=== PATIENT | female | born 1965 | race Caucasian/White ===

== ENCOUNTER 2016-11-18 10:41 | Emergency (ER) | payer BC ==
[~2016-11-18] VITALS: Ht 162.6 cm; Wt 52.0 kg
[~2016-11-18 10:41] MED LIST: AMIT10TA PO; CA C1TAB62 PO; CHOL4PAC2 PO; CIME200T4 PO; CITA10TA8 PO; CITA40TA5 PO; DICY20TA3 PO; DIPH1TAB6 PO; DRON5CAP15 PO; ESCI10TA10 PO; FENO134C PO; GLYC1TAB PO; HYDR-3307 PO; LACT1CAP35 PO; OMEP20TA62 PO; ONDA8TAB16 SL; OXYC5TAB3 PO
[2016-11-18 10:53] VITALS: BP 102/72
[2016-11-18] MEDS ORDERED: DIAZEPAM 5 MG TABLET ONE (11:56)
[2016-11-18] MEDS ORDERED: KETOROLAC 30 MG/1 ML ONE (11:56)
[2016-11-18] MEDS ORDERED: DIAZEPAM 5 MG TABLET PO ONE (12:00)
[2016-11-18] MEDS ORDERED: KETOROLAC 30 MG/1 ML IM ONE (12:00)
== END 2016-11-18 13:17 | disposition home or self-care (01) ==
LOC: ED 13:11
DX: S22.080A Wedge compression fracture of T11-T12 vertebra, initial encounter for closed fracture (principal); F17.200 Nicotine dependence, unspecified, uncomplicated; G89.29 Other chronic pain; F41.1 Generalized anxiety disorder; Z90.49 Acquired absence of other specified parts of digestive tract; W01.0XXA Fall on same level from slipping, tripping and stumbling without subsequent striking against object, initial encounter; Y93.89 Activity, other specified; Y99.8 Other external cause status; Y92.89 Other specified places as the place of occurrence of the external cause
CPT/HCPCS: 72110; 96372; 99284; J1885

== ENCOUNTER 2016-11-21 11:38 | Emergency (ER) | payer BC ==
[~2016-11-21] VITALS: Ht 162.6 cm; Wt 67.0 kg
[2016-11-21] MEDS ORDERED: METOCLOPRAMIDE 5 MG/ML, 2ML ONE (12:26)
[2016-11-21] MEDS ORDERED: FAMOTIDINE 20 MG/2 ML ONE (12:26)
[2016-11-21] MEDS ORDERED: DIPHENHYDRAMINE 50 MG/ML, 1ML ONE (12:26)
[2016-11-21] MEDS ORDERED: MORPHINE SULFATE 4 MG/ML, 1ML ONE (12:26)
[2016-11-21] MEDS ORDERED: SODIUM CHLORIDE 0.9% 1,000ML IVBOLUS ONE (12:30)
[2016-11-21] MEDS ORDERED: DIPHENHYDRAMINE 50 MG/ML, 1ML IVPush ONE (12:30)
[2016-11-21] MEDS ORDERED: FAMOTIDINE 20 MG/2 ML IVP ONE (12:30)
[2016-11-21] MEDS ORDERED: MORPHINE SULFATE 4 MG/ML, 1ML IVPush PRN (12:30)
[2016-11-21] MEDS ORDERED: METOCLOPRAMIDE 5 MG/ML, 2ML IVPush ONE (12:30)
[2016-11-21] MEDS ORDERED: SODIUM CHLORIDE FLUSH 10ML SYR IVF ONE (12:30)
[2016-11-21 12:41] LABS: HEMOGLOBIN 15.1 g/dL (11.7-16.4)
[2016-11-21 12:53] LABS: ASPARTATE AMINO TRANSFERASE 41 U/L (15-37); BLOOD UREA NITROGEN 12 mg/dL (7-18)
[2016-11-21] MEDS ORDERED: POTASSIUM CHLORIDE 10% 40 MEQ/30 ML UDC PO ONE (14:00)
[2016-11-21] MEDS ORDERED: POTASSIUM CHLORIDE 10% 20 MEQ/15 ML UDC ONE (14:13)
[2016-11-21 15:12] VITALS: BP 122/78
== END 2016-11-21 15:16 | disposition home or self-care (01) ==
LOC: ED 14:12
DX: K29.00 Acute gastritis without bleeding (principal); D72.829 Elevated white blood cell count, unspecified; E87.6 Hypokalemia; R11.2 Nausea with vomiting, unspecified; Z90.89 Acquired absence of other organs
CPT/HCPCS: 36415; 80053; 81001; 83690; 85025; 87086; 96361; 96374; 96375; 99284; J1200; J2765; J7030; S0028

== ENCOUNTER → 2016-12-24 | Outpatient (CLI) | payer BC | END | disposition home or self-care (01) | LOC: PETCFH 08:29 | PROVIDERS: ATTEND Internal Medicine Gastroenterology | DX: D13.2 Benign neoplasm of duodenum (principal); K80.20 Calculus of gallbladder without cholecystitis without obstruction; R93.3 Abnormal findings on diagnostic imaging of other parts of digestive tract; R93.5 Abnormal findings on diagnostic imaging of other abdominal regions, including retroperitoneum; J30.1 Allergic rhinitis due to pollen; K22.70 Barrett's esophagus without dysplasia; D37.8 Neoplasm of uncertain behavior of other specified digestive organs; K44.9 Diaphragmatic hernia without obstruction or gangrene; R19.7 Diarrhea, unspecified; K31.9 Disease of stomach and duodenum, unspecified; S22.32XA Fracture of one rib, left side, initial encounter for closed fracture; X58.XXXA Exposure to other specified factors, initial encounter; Y93.89 Activity, other specified; Y92.89 Other specified places as the place of occurrence of the external cause; Y99.8 Other external cause status; R19.4 Change in bowel habit; J30.2 Other seasonal allergic rhinitis; Z85.858 Personal history of malignant neoplasm of other endocrine glands | CPT/HCPCS: 78264; A9541 ==

== ENCOUNTER 2017-01-29 10:28 | Observation (INO) | payer BC ==
[~2017-01-29] VITALS: Ht 162.6 cm; Wt 52.9 kg
[2017-01-29] MEDS ORDERED: SODIUM CHLORIDE 0.9% 1,000 ML IV ONE (10:41)
[2017-01-29] MEDS ORDERED: FAMOTIDINE 20 MG/2 ML ONE (10:46)
[2017-01-29] MEDS ORDERED: PROCHLORPERAZINE 5 MG/ML, 2ML ONE (10:46)
[2017-01-29] MEDS ORDERED: SODIUM CHLORIDE FLUSH 10ML SYR IVF ONE (11:00)
[2017-01-29] MEDS ORDERED: FAMOTIDINE 20 MG/2 ML IVP ONE (11:00)
[2017-01-29] MEDS ORDERED: PROCHLORPERAZINE 5 MG/ML, 2ML IVPush ONE (11:00)
[2017-01-29] MEDS ORDERED: SODIUM CHLORIDE 0.9% 1,000ML IVBOLUS ONE (11:00)
[2017-01-29 11:10] LABS: ASPARTATE AMINO TRANSFERASE 28 U/L (15-37); BLOOD UREA NITROGEN 16 mg/dL (7-18)
[2017-01-29] MEDS ORDERED: POTASSIUM CHLORIDE 20 MEQ PACKET PO ONE (11:30)
[2017-01-29] MEDS ORDERED: POTASSIUM CHLORIDE 40 MEQ in SODIUM CHLORIDE 0.9% 500 ML IV ONE (11:30)
[2017-01-29] MEDS ORDERED: MORPHINE SULFATE 4 MG/ML, 1ML IVPush ONE (13:00)
[2017-01-29] MEDS ORDERED: MORPHINE SULFATE 4 MG/ML, 1ML ONE (14:19)
[2017-01-29] MEDS ORDERED: ONDANSETRON ODT 8 MG PO PRN ×2 (15:30)
[2017-01-29] MEDS ORDERED: POLYETHYLENE GLYCOL 17 GM PACKET PO PRN (15:30)
[2017-01-29] MEDS ORDERED: LORazepam 2 MG/ML, 1ML IVPush PRN (15:30)
[2017-01-29] MEDS ORDERED: CIMETIDINE 200 MG TABLET PO SCH (15:30)
[2017-01-29] MEDS ORDERED: ONDANSETRON 2MG/ML, 2ML IVPush PRN (15:30)
[2017-01-29] MEDS: BISACODYL 10 MG SUPP PR SCH (15:30)
[2017-01-29] MEDS ORDERED: PROMETHAZINE 12.5 MG SUPP PR PRN (15:30)
[2017-01-29] MEDS ORDERED: MAGNESIUM SULFATE PMX 2GM/50ML 50 ML IV ONE (16:00)
[2017-01-29] MEDS ORDERED: DIAZEPAM 5 MG TABLET PO PRN (16:00)
[2017-01-29] MEDS: DICYCLOMINE 20 MG TABLET PO SCH ×2 (16:00→21:00)
[2017-01-29 16:14] VITALS: BP 135/88
[2017-01-29] MEDS: HEPARIN 5,000 UNITS/ML, 1ML SQ SCH ×2 (17:02→23:01)
[2017-01-29] MEDS: NICOTINE 14MG/24 HR PATCH.TD24 TD SCH (17:04)
[2017-01-29] MEDS: PANTOPRAZOLE 40 MG IV IVPush SCH (17:06)
[2017-01-29] MEDS: D5%-0.45NACL+KCL 20MEQ 1,000 ML IV SCH (17:39)
[2017-01-29] MEDS: OXYcodone IR 5MG TABLET PO PRN (17:41)
[2017-01-29 20:00] VITALS: BP 112/68
[2017-01-29] MEDS ORDERED: FAMOTIDINE 20 MG/2 ML IVPush SCH (21:00)
[2017-01-29] MEDS ORDERED: AMITRIPTYLINE 10 MG TABLET PO SCH (21:00)
[2017-01-29] MEDS: HYDROcodone/APAP 10/325 MG TABLET PO SCH (21:22)
[2017-01-29] MEDS: DRONABINOL 5 MG CAPSULE PO SCH (21:22)
[2017-01-30 02:00] VITALS: BP 103/54
[2017-01-30] MEDS: PANTOPRAZOLE 40 MG IV IVPush SCH ×2 (03:02→15:50)
[2017-01-30] MEDS: HYDROcodone/APAP 10/325 MG TABLET PO SCH ×4 (03:02→15:49)
[2017-01-30] MEDS: D5%-0.45NACL+KCL 20MEQ 1,000 ML IV SCH (04:29)
[2017-01-30] MEDS: OXYcodone IR 5MG TABLET PO PRN ×2 (04:59→10:41)
[2017-01-30 05:43] LABS: ASPARTATE AMINO TRANSFERASE 26 U/L (15-37); BLOOD UREA NITROGEN 7 mg/dL (7-18)
[2017-01-30 06:37] VITALS: BP 113/71
[2017-01-30] MEDS: HEPARIN 5,000 UNITS/ML, 1ML SQ SCH ×2 (08:12→15:30)
[2017-01-30] MEDS: DRONABINOL 5 MG CAPSULE PO SCH (08:13)
[2017-01-30] MEDS: DICYCLOMINE 20 MG TABLET PO SCH (08:13)
[2017-01-30] MEDS: BISACODYL 10 MG SUPP PR SCH (08:30)
[2017-01-30] MEDS ORDERED: SENNA/DOCUSATE TABLET PO SCH (09:00)
[2017-01-30] MEDS ORDERED: CITALOPRAM 20 MG TABLET PO SCH (09:00)
[2017-01-30] MEDS ORDERED: FENOFIBRATE 145 MG TABLET PO SCH (09:00)
[2017-01-30] MEDS ORDERED: CITALOPRAM 10 MG TABLET PO SCH (09:00)
[2017-01-30] MEDS ORDERED: TEMPLATE NON-FORMULARY MED. (Ca Carb & Gluc/Mag Ox & Gluc** (Calcium Magnesium Caplet**) 1 PO SCH (09:00)
[2017-01-30] MEDS ORDERED: LACTOBACILLUS CHEW TABLET PO SCH (09:00)
[2017-01-30] MEDS ORDERED: TEMPLATE NON-FORMULARY MED. (Omeprazole Magnesium** (Prilosec Otc**) 20 MG) PO SCH (09:00)
[2017-01-30] MEDS ORDERED: POTASSIUM PHOSPHATE 22 MEQ in SODIUM CHLORIDE 0.9% 500 ML IV ONE (10:00)
[2017-01-30 12:37] VITALS: BP 119/72
[2017-01-30] MEDS ORDERED: POLY17PO5 PO (13:20)
[2017-01-30] MEDS ORDERED: SENN1TAB7 PO (13:20)
[2017-01-30] MEDS ORDERED: NEUTRA PHOS K 250 MG TABLET PO ONE (14:00)
[2017-01-30] MEDS: NICOTINE 14MG/24 HR PATCH.TD24 TD SCH (15:30)
[2017-01-30] MEDS ORDERED: POTASSIUM CHLORIDE 20 MEQ TAB.ER.PRT PO SCH (17:00)
== END 2017-01-30 16:25 | disposition home or self-care (01) ==
LOC: ED 10:42 → INTOOBSV 13:39 → EDIP 13:39 → 4WST 15:39 → UNDODISIN 01-30 16:25
PROVIDERS: ADMIT Hospitalist; ATTEND Hospitalist
DX: R10.32 Left lower quadrant pain (principal); G89.4 Chronic pain syndrome; R11.2 Nausea with vomiting, unspecified; D72.829 Elevated white blood cell count, unspecified; E86.0 Dehydration; E87.1 Hypo-osmolality and hyponatremia; E87.6 Hypokalemia; R79.89 Other specified abnormal findings of blood chemistry; R73.9 Hyperglycemia, unspecified; E31.21 Multiple endocrine neoplasia [MEN] type I; F17.210 Nicotine dependence, cigarettes, uncomplicated; F32.9 Major depressive disorder, single episode, unspecified; F41.9 Anxiety disorder, unspecified; B96.81 Helicobacter pylori [H. pylori] as the cause of diseases classified elsewhere; K29.70 Gastritis, unspecified, without bleeding; F11.20 Opioid dependence, uncomplicated; R00.0 Tachycardia, unspecified; K58.9 Irritable bowel syndrome, unspecified; K21.9 Gastro-esophageal reflux disease without esophagitis; Z80.0 Family history of malignant neoplasm of digestive organs; Z86.19 Personal history of other infectious and parasitic diseases; Z66 Do not resuscitate; Z83.3 Family history of diabetes mellitus
CPT/HCPCS: 36415; 74020; 80053; 81001; 83690; 83735; 84100; 85025; 93005; 96361; 96365; 96366; 96367; 96368; 96372; 96375; 96376; 99285; C9113; G0378; J0780; J1644; J3475; J3480; J7030; J7040; Q0167; S0028

== ENCOUNTER 2017-02-03 16:02 | Inpatient (IN) | payer BC ==
[~2017-02-03] VITALS: Ht 162.6 cm; Wt 55.4 kg
[~2017-02-03 16:02] MED LIST changes: +POLY17PO5 PO; +SENN1TAB7 PO
[2017-02-03] MEDS ORDERED: SODIUM CHLORIDE FLUSH 10ML SYR IVF ONE (16:30)
[2017-02-03] MEDS ORDERED: MORPHINE SULFATE 4 MG/ML, 1ML IVPush PRN (16:30)
[2017-02-03] MEDS ORDERED: PROMETHAZINE 25 MG/ML, 1ML IM ONE (16:30)
[2017-02-03] MEDS ORDERED: SODIUM CHLORIDE 0.9% 1,000ML IVBOLUS ONE ×2 (16:30→19:00)
[2017-02-03] MEDS ORDERED: ONDANSETRON 2MG/ML, 2ML IVPush ONE (16:30)
[2017-02-03] MEDS ORDERED: PLEASE ENTER HEIGHT AND WEIGHT MC SCH (16:30)
[2017-02-03] MEDS ORDERED: PROMETHAZINE 25 MG/ML, 1ML ONE (16:43)
[2017-02-03] MEDS ORDERED: MORPHINE SULFATE 4 MG/ML, 1ML ONE ×2 (16:43→19:56)
[2017-02-03 16:44] LABS: BLOOD UREA NITROGEN 11 mg/dL (7-18)
[2017-02-03] MEDS ORDERED: ONDANSETRON 2MG/ML, 2ML ONE (16:44)
[2017-02-03 16:48] LABS: ASPARTATE AMINO TRANSFERASE 19 U/L (15-37)
[2017-02-03 17:07] LABS: POLYCHROMASIA 1+
[2017-02-03] MEDS ORDERED: POTASSIUM PHOSPHATE 22 MEQ in SODIUM CHLORIDE 0.9% 500 ML IV ONE (17:30)
[2017-02-03] MEDS ORDERED: POTASSIUM CHLORIDE 60 MEQ in SODIUM CHLORIDE 0.9% 1,000 ML IV ONE (17:30)
[2017-02-03] MEDS ORDERED: MAGNESIUM SULFATE PMX 2GM/50ML 50 ML IV ONE ×2 (17:30→21:30)
[2017-02-03] MEDS ORDERED: ENALAPRILAT 1.25 MG/ML, 2ML IVPush PRN (19:00)
[2017-02-03] MEDS ORDERED: ONDANSETRON ODT 4 MG PO PRN (19:00)
[2017-02-03 19:38] VITALS: BP 117/75
[2017-02-03] MEDS: morphine SULFATE 10 MG/ML, 1ML IVPush PRN ×2 (20:07→21:20)
[2017-02-03] MEDS ORDERED: OMNIPAQUE 350 MG/ML, 100ML BOTTLE ONE (21:21)
[2017-02-03] MEDS ORDERED: DIPHENHYDRAMINE 50 MG/ML, 1ML IVPush ONE (21:30)
[2017-02-03] MEDS: NICOTINE 14MG/24 HR PATCH.TD24 TD SCH (22:31)
[2017-02-03] MEDS: ONDANSETRON 2MG/ML, 2ML IVPush PRN (22:31)
[2017-02-03] MEDS: MORPHINE SULFATE 4 MG/ML, 1ML IVPush PRN (23:22)
[2017-02-03 23:47] VITALS: BP 118/71
[2017-02-04] MEDS: MORPHINE SULFATE 4 MG/ML, 1ML IVPush PRN ×4 (02:00→09:15)
[2017-02-04] MEDS: ONDANSETRON 2MG/ML, 2ML IVPush PRN ×3 (02:02→20:49)
[2017-02-04 02:08] VITALS: BP 105/54
[2017-02-04 05:06] LABS: BLOOD UREA NITROGEN 7 mg/dL (7-18)
[2017-02-04] MEDS: POTASSIUM CHLORIDE 20 MEQ in SODIUM CHLORIDE 0.45% 1,000 ML IV SCH (05:10)
[2017-02-04] MEDS ORDERED: morphine SULFATE 10 MG/ML, 1ML ONE ×2 (06:23→09:09)
[2017-02-04] MEDS ORDERED: POTASSIUM CHLORIDE 40 MEQ in SODIUM CHLORIDE 0.9% 500 ML IV ONE (07:30)
[2017-02-04] MEDS ORDERED: CALCIUM GLUCONATE 9.2 MEQ in SODIUM CHLORIDE 0.9% 100 ML IV ONE (07:30)
[2017-02-04 08:20] VITALS: BP 107/70
[2017-02-04] MEDS ORDERED: PANTOPRAZOLE 80 MG in SODIUM CHLORIDE 0.9% 50 ML IV ONE (08:30)
[2017-02-04] MEDS: PANTOPRAZOLE 80 MG in SODIUM CHLORIDE 0.9% 100 ML IV SCH ×3 (09:18→19:44)
[2017-02-04] MEDS: HYDROmorphone 2 MG/ML, 1ML IVPush PRN ×6 (11:05→22:50)
[2017-02-04 13:28] VITALS: BP 105/62
[2017-02-04 14:58] LABS: BLOOD UREA NITROGEN 5 mg/dL (7-18)
[2017-02-04] MEDS ORDERED: POTASSIUM CHLORIDE 40 MEQ in SODIUM CHLORIDE 0.9% 100 ML IV ONE (16:00)
[2017-02-04 17:05] VITALS: BP 121/76
[2017-02-04] MEDS: NICOTINE 14MG/24 HR PATCH.TD24 TD SCH (18:16)
[2017-02-04 20:13] VITALS: BP 115/81
[2017-02-05] MEDS: POTASSIUM CHLORIDE 20 MEQ in SODIUM CHLORIDE 0.45% 1,000 ML IV SCH ×2 (00:07→15:01)
[2017-02-05] MEDS: HYDROmorphone 2 MG/ML, 1ML IVPush PRN ×7 (02:06→21:33)
[2017-02-05 02:37] VITALS: BP 121/80
[2017-02-05] MEDS: ONDANSETRON 2MG/ML, 2ML IVPush PRN ×3 (02:55→18:30)
[2017-02-05] MEDS: PANTOPRAZOLE 80 MG in SODIUM CHLORIDE 0.9% 100 ML IV SCH ×2 (05:20→16:24)
[2017-02-05 06:27] LABS: BLOOD UREA NITROGEN 2 mg/dL (7-18)
[2017-02-05 06:30] LABS: ASPARTATE AMINO TRANSFERASE 22 U/L (15-37)
[2017-02-05] MEDS ORDERED: POTASSIUM PHOSPHATE 44 MEQ in SODIUM CHLORIDE 0.9% 500 ML IV ONE (07:00)
[2017-02-05] MEDS ORDERED: MAGNESIUM SULFATE PMX 4GM/100M 100 ML IV ONE (07:00)
[2017-02-05] MEDS ORDERED: TPN PER PHARMACY MC PRN (07:00)
[2017-02-05 07:48] VITALS: BP 112/70
[2017-02-05] MEDS ORDERED: ONDANSETRON 2MG/ML, 2ML IVPush PRN (10:00)
[2017-02-05] MEDS ORDERED: OXYcodone 5 MG/5 ML ORAL.SOL UDC PO PRN (10:00)
[2017-02-05] MEDS ORDERED: PROMETHAZINE 25 MG/ML, 1ML IV PRN (10:00)
[2017-02-05] MEDS ORDERED: MIDAZOLAM 1 MG/ML, 2ML IV PRN (10:00)
[2017-02-05] MEDS ORDERED: FENTANYL PF 100 MCG/2ML IV PRN (10:00)
[2017-02-05] MEDS ORDERED: HYDROmorphone 1 MG/ML, 1ML IV PRN (10:00)
[2017-02-05 11:13] VITALS: BP 119/81
[2017-02-05 12:31] VITALS: BP 122/89
[2017-02-05 14:15] LABS: BLOOD UREA NITROGEN 2 mg/dL (7-18)
[2017-02-05] MEDS ORDERED: POTASSIUM CHLORIDE 40 MEQ in SODIUM CHLORIDE 0.9% 100 ML IV ONE (15:00)
[2017-02-05] MEDS ORDERED: PROPOFOL 10 MG/ML, 20ML ONE (15:35)
[2017-02-05] MEDS: NICOTINE 14MG/24 HR PATCH.TD24 TD SCH (18:30)
[2017-02-05 19:04] VITALS: BP 131/76
[2017-02-05] MEDS ORDERED: PNEUMOCOCCAL 23 VACCINE IM-VACC ONE (23:00)
[2017-02-06] MEDS: HYDROmorphone 2 MG/ML, 1ML IVPush PRN (00:47)
[2017-02-06 01:03] VITALS: BP 128/81
[2017-02-06] MEDS: POTASSIUM CHLORIDE 20 MEQ in SODIUM CHLORIDE 0.45% 1,000 ML IV SCH ×2 (01:22→11:12)
[2017-02-06] MEDS: PANTOPRAZOLE 80 MG in SODIUM CHLORIDE 0.9% 100 ML IV SCH (02:44)
[2017-02-06 03:09] LABS: BLOOD UREA NITROGEN < 1 mg/dL (7-18)
[2017-02-06 07:13] VITALS: BP 113/71
[2017-02-06] MEDS ORDERED: HYDROcodone/APAP 10/325 MG TABLET PO PRN (08:00)
[2017-02-06] MEDS ORDERED: OMEP20TA62 PO (12:46)
[2017-02-06] MEDS ORDERED: HYDR-3307 PO (12:46)
[2017-02-06 15:00] VITALS: BP 130/90
[2017-02-06] MEDS ORDERED: ONDA8TAB12 PO (15:18)
[2017-02-06] MEDS ORDERED: OMEPRAZOLE 20 MG CAPSULE.DR PO SCH (21:00)
== END 2017-02-06 15:38 | disposition home or self-care (01) | DRG 381 ==
LOC: ED 17:27 → EDIP 17:28 → ED 17:39 → 4WST 19:00
PROVIDERS: ADMIT Family Medicine; ATTEND Family Medicine
PROC: 02HV33Z Insertion of Infusion Device into Superior Vena Cava, Percutaneous Approach (ICD-10-PCS; 2017-02-04)
PROC: B548ZZA Ultrasonography of Superior Vena Cava, Guidance (ICD-10-PCS; 2017-02-04)
PROC: 0DBA8ZX Excision of Jejunum, Via Natural or Artificial Opening Endoscopic, Diagnostic (ICD-10-PCS; 2017-02-05)
PROC: 0DB58ZX Excision of Esophagus, Via Natural or Artificial Opening Endoscopic, Diagnostic (ICD-10-PCS; 2017-02-05)
PROC: 0DB98ZX Excision of Duodenum, Via Natural or Artificial Opening Endoscopic, Diagnostic (ICD-10-PCS; principal; 2017-02-05 09:30)
DX: K31.5 Obstruction of duodenum (principal); K22.10 Ulcer of esophagus without bleeding; N17.9 Acute kidney failure, unspecified; K28.9 Gastrojejunal ulcer, unspecified as acute or chronic, without hemorrhage or perforation; K21.0 Gastro-esophageal reflux disease with esophagitis; K26.9 Duodenal ulcer, unspecified as acute or chronic, without hemorrhage or perforation; K29.60 Other gastritis without bleeding; G43.A0 Cyclical vomiting, in migraine, not intractable; E87.6 Hypokalemia; E83.42 Hypomagnesemia; E83.39 Other disorders of phosphorus metabolism; F32.9 Major depressive disorder, single episode, unspecified; F41.9 Anxiety disorder, unspecified; F17.210 Nicotine dependence, cigarettes, uncomplicated; F41.1 Generalized anxiety disorder; D72.829 Elevated white blood cell count, unspecified; Z66 Do not resuscitate; R06.4 Hyperventilation; E86.0 Dehydration; Z86.010 Personal history of colon polyps; E83.51 Hypocalcemia; G89.4 Chronic pain syndrome; K29.80 Duodenitis without bleeding; K58.9 Irritable bowel syndrome, unspecified; Z80.0 Family history of malignant neoplasm of digestive organs; Z90.49 Acquired absence of other specified parts of digestive tract; Z87.11 Personal history of peptic ulcer disease; Z90.411 Acquired partial absence of pancreas; Z88.0 Allergy status to penicillin; Z90.710 Acquired absence of both cervix and uterus; Z23 Encounter for immunization; E31.21 Multiple endocrine neoplasia [MEN] type I
CPT/HCPCS: 36415; 36569; 74020; 74177; 76937; 77001; 80048; 80053; 81001; 82040; 82607; 82728; 82746; 82941; 82943; 83525; 83540; 83550; 83690; 83735; 84100; 84134; 84466; 85025; 85610; 87040; 87086; 87324; 88305; 90732; 96361; 96372; 96374; 96375; J0610; J1170; J2405; J2550; J2704; J3480; Q9967; C1751; C9113; J1200; J2270; J3475; J7030; J7040

== ENCOUNTER 2017-02-10 16:20 | Emergency (ER) | payer BC ==
[~2017-02-10] VITALS: Ht 162.6 cm; Wt 54.5 kg
[~2017-02-10 16:20] MED LIST changes: +ONDA8TAB12 PO
[2017-02-10] MEDS ORDERED: MORPHINE SULFATE 4 MG/ML, 1ML ONE (16:47)
[2017-02-10] MEDS ORDERED: ONDANSETRON 2MG/ML, 2ML ONE (16:48)
[2017-02-10] MEDS ORDERED: ONDANSETRON 2MG/ML, 2ML IVPush ONE (17:00)
[2017-02-10] MEDS ORDERED: SODIUM CHLORIDE FLUSH 10ML SYR IVF ONE (17:00)
[2017-02-10] MEDS ORDERED: SODIUM CHLORIDE 0.9% 1,000ML IVBOLUS ONE (17:00)
[2017-02-10] MEDS ORDERED: MORPHINE SULFATE 4 MG/ML, 1ML IVPush PRN (17:00)
[2017-02-10 17:02] LABS: PATH.CAST-FLAG NOT PRESENT; SPERM-FLAG NOT PRESENT; SRC-FLAG NOT PRESENT; XTAL-FLAG NOT PRESENT; YLC-FLAG NOT PRESENT
[2017-02-10 17:12] LABS: DIFF TOTAL CELLS COUNTED 100 CELL DIFF
[2017-02-10 17:13] LABS: ASPARTATE AMINO TRANSFERASE 18 U/L (15-37); BLOOD UREA NITROGEN 10 mg/dL (7-18)
[2017-02-10 17:27] LABS: VERIFY COUNTS? YES
[2017-02-10 17:28] LABS: SMALL PLATELETS 2+
[2017-02-10] MEDS ORDERED: METOCLOPRAMIDE 5 MG/ML, 2ML ONE (19:12)
[2017-02-10] MEDS ORDERED: METOCLOPRAMIDE 5 MG/ML, 2ML IVPush ONE (19:30)
[2017-02-10 19:55] VITALS: BP 140/80
== END 2017-02-10 19:57 | disposition home or self-care (01) ==
LOC: ED 17:46
DX: K59.00 Constipation, unspecified (principal); D72.829 Elevated white blood cell count, unspecified; E87.6 Hypokalemia; D47.3 Essential (hemorrhagic) thrombocythemia; F17.210 Nicotine dependence, cigarettes, uncomplicated; Z90.49 Acquired absence of other specified parts of digestive tract
CPT/HCPCS: 36415; 74020; 80053; 81001; 83605; 83690; 85025; 87086; 93005; 96361; 96374; 96375; 99285; J2405; J2765; J7030

== ENCOUNTER 2017-02-16 11:00 | Inpatient (IN) | payer BC ==
[~2017-02-16] VITALS: Ht 162.6 cm; Wt 50.8 kg
[2017-02-16] MEDS ORDERED: SODIUM CHLORIDE 0.9% 1,000 ML IV ONE (11:57)
[2017-02-16] MEDS ORDERED: FAMOTIDINE 20 MG/2 ML IVP ONE (12:00)
[2017-02-16] MEDS ORDERED: SODIUM CHLORIDE 0.9% 1,000ML IVBOLUS ONE (12:00)
[2017-02-16] MEDS ORDERED: ONDANSETRON 2MG/ML, 2ML IVPush ONE (12:00)
[2017-02-16] MEDS ORDERED: HYDROmorphone 1 MG/ML, 1ML IVPush PRN (12:00)
[2017-02-16] MEDS ORDERED: SODIUM CHLORIDE FLUSH 10ML SYR IVF ONE (12:00)
[2017-02-16] MEDS ORDERED: ONDANSETRON 2MG/ML, 2ML ONE (12:51)
[2017-02-16] MEDS ORDERED: FAMOTIDINE 20 MG/2 ML ONE (12:51)
[2017-02-16] MEDS ORDERED: HYDROmorphone 1 MG/ML, 1ML ONE (12:51)
[2017-02-16 12:59] LABS: BLOOD UREA NITROGEN 9 mg/dL (7-18)
[2017-02-16 13:02] LABS: ASPARTATE AMINO TRANSFERASE 22 U/L (15-37)
[2017-02-16 13:11] LABS: DIFF TOTAL CELLS COUNTED 100 CELL DIFF
[2017-02-16 13:12] LABS: VERIFY COUNTS? YES
[2017-02-16 13:13] LABS: SMALL PLATELETS 2+
[2017-02-16] MEDS ORDERED: POTASSIUM CHLORIDE 40 MEQ in SODIUM CHLORIDE 0.9% 500 ML IV ONE ×2 (13:30→18:30)
[2017-02-16] MEDS ORDERED: HYDROcodone/APAP 5/325 TABLET ONE (14:53)
[2017-02-16] MEDS ORDERED: ONDANSETRON ODT 4 MG ONE (14:54)
[2017-02-16] MEDS ORDERED: LABETALOL 5MG/ML, 20ML IVPush PRN (15:00)
[2017-02-16] MEDS ORDERED: ONDANSETRON ODT 4 MG PO ONE (15:00)
[2017-02-16] MEDS ORDERED: ENALAPRILAT 1.25 MG/ML, 2ML IVPush PRN (15:00)
[2017-02-16] MEDS ORDERED: HYDROcodone/APAP 5/325 TABLET PO ONE (15:00)
[2017-02-16] MEDS ORDERED: ONDANSETRON ODT 4 MG PO PRN (15:00)
[2017-02-16] MEDS ORDERED: POLYETHYLENE GLYCOL 17 GM PACKET PO PRN (15:00)
[2017-02-16 16:20] VITALS: BP 106/71
[2017-02-16 17:49] LABS: DAU SCREEN DISCLAIMER
[2017-02-16] MEDS ORDERED: NS + 20MEQ KCL 1,000 ML IV SCH (18:00)
[2017-02-16] MEDS: HYDROmorphone 2 MG/ML, 1ML IVPush PRN ×3 (19:47→21:19)
[2017-02-16 19:54] VITALS: BP 111/58
[2017-02-16] MEDS ORDERED: OMNIPAQUE 350 MG/ML, 100ML BOTTLE ONE (20:23)
[2017-02-16] MEDS: NICOTINE 7 MG/24 HR PATCH.TD24 TD SCH (20:49)
[2017-02-16] MEDS: PANTOPRAZOLE 40 MG IV IVPush SCH (20:50)
[2017-02-17 00:33] VITALS: BP 111/73
[2017-02-17] MEDS: HYDROmorphone 2 MG/ML, 1ML IVPush PRN ×6 (00:35→21:12)
[2017-02-17] MEDS: ONDANSETRON 2MG/ML, 2ML IVPush PRN ×2 (00:45→08:56)
[2017-02-17 06:45] LABS: ASPARTATE AMINO TRANSFERASE 15 U/L (15-37); BLOOD UREA NITROGEN 10 mg/dL (7-18)
[2017-02-17] MEDS: LACTATED RINGERS 1,000 ML IV SCH ×2 (06:46→21:11)
[2017-02-17 06:53] VITALS: BP 105/67
[2017-02-17] MEDS ORDERED: HYDROcodone/APAP 5/325 TABLET PO PRN (08:00)
[2017-02-17] MEDS ORDERED: HYDROmorphone 1 MG/ML, 1ML IV PRN (08:00)
[2017-02-17] MEDS: PANTOPRAZOLE 40 MG IV IVPush SCH (08:26)
[2017-02-17] MEDS ORDERED: HYDROmorphone 1 MG/ML, 1ML IV ONE (08:30)
[2017-02-17 13:56] VITALS: BP 98/63
[2017-02-17 19:40] VITALS: BP 105/71
[2017-02-17] MEDS: NICOTINE 7 MG/24 HR PATCH.TD24 TD SCH (21:11)
[2017-02-18] MEDS: HYDROmorphone 2 MG/ML, 1ML IVPush PRN (03:10)
[2017-02-18 03:11] VITALS: BP 97/58
[2017-02-18 05:12] LABS: BLOOD UREA NITROGEN 4 mg/dL (7-18)
[2017-02-18 07:38] VITALS: BP 102/62
[2017-02-18] MEDS: PANTOPRAZOLE 40 MG IV IVPush SCH (07:58)
[2017-02-18] MEDS ORDERED: POTASSIUM CHLORIDE 20 MEQ TAB.ER.PRT PO ONE (14:00)
== END 2017-02-18 14:27 | disposition home or self-care (01) | DRG 643 ==
LOC: ED 13:11 → EDIP 14:23 → 4WST 16:16
PROVIDERS: ADMIT Family Medicine; ATTEND Family Medicine
PROC: 02HV33Z Insertion of Infusion Device into Superior Vena Cava, Percutaneous Approach (ICD-10-PCS; principal; 2017-02-18)
PROC: B548ZZA Ultrasonography of Superior Vena Cava, Guidance (ICD-10-PCS; 2017-02-18)
PROC: 0T9B70Z Drainage of Bladder with Drainage Device, Via Natural or Artificial Opening (ICD-10-PCS; 2017-02-18)
DX: E31.21 Multiple endocrine neoplasia [MEN] type I (principal); G93.41 Metabolic encephalopathy; E87.1 Hypo-osmolality and hyponatremia; F19.20 Other psychoactive substance dependence, uncomplicated; K58.0 Irritable bowel syndrome with diarrhea; K21.9 Gastro-esophageal reflux disease without esophagitis; G43.A0 Cyclical vomiting, in migraine, not intractable; F41.9 Anxiety disorder, unspecified; D72.829 Elevated white blood cell count, unspecified; E86.0 Dehydration; E87.6 Hypokalemia; F17.210 Nicotine dependence, cigarettes, uncomplicated; D75.89 Other specified diseases of blood and blood-forming organs; G89.29 Other chronic pain; K26.9 Duodenal ulcer, unspecified as acute or chronic, without hemorrhage or perforation; Z66 Do not resuscitate; Z85.07 Personal history of malignant neoplasm of pancreas; Z87.11 Personal history of peptic ulcer disease; Z88.0 Allergy status to penicillin
CPT/HCPCS: 36415; 36569; 70450; 71010; 74022; 74177; 76937; 77001; 80048; 80053; 80307; 81003; 82943; 83605; 83690; 83735; 84100; 84132; 84443; 85025; 85610; 87324; 93005; 99285; J1170; J2405; J3480; Q0162; Q9967; C1751; C9113; J7040; J7120

== ENCOUNTER 2017-05-12 09:03 | Inpatient (IN) | payer BC ==
[~2017-05-12] VITALS: Ht 162.6 cm; Wt 56.7 kg
[~2017-05-12 09:03] MED LIST changes: -CIME200T4 PO; +CIME200T6 PO
[2017-05-12] MEDS ORDERED: SODIUM CHLORIDE 0.9%, 500ML IVBOLUS ONE (09:30)
[2017-05-12] MEDS ORDERED: HYDROmorphone 1 MG/ML, 1ML IV ONE ×3 (09:30→12:30)
[2017-05-12] MEDS ORDERED: HYDROmorphone 1 MG/ML, 1ML ONE ×2 (09:31→12:12)
[2017-05-12 09:42] LABS: HEMATOCRIT 38.3 % (34.6-47.8); HEMOGLOBIN 12.9 g/dL (11.7-16.4)
[2017-05-12] MEDS ORDERED: HYDROmorphone 2 MG/ML, 1ML ONE (09:51)
[2017-05-12 09:52] LABS: ASPARTATE AMINO TRANSFERASE 40 U/L (15-37); BLOOD UREA NITROGEN 5 mg/dL (7-18)
[2017-05-12 10:10] LABS: DIFF TOTAL CELLS COUNTED 100 CELL DIFF
[2017-05-12 10:11] LABS: VERIFY COUNTS? YES
[2017-05-12 10:13] LABS: SMALL PLATELETS 1+
[2017-05-12] MEDS ORDERED: OMNIPAQUE 350 MG/ML, 100ML BOTTLE ONE (10:24)
[2017-05-12 10:33] LABS: PATH.CAST-FLAG NOT PRESENT; SPERM-FLAG NOT PRESENT; SRC-FLAG NOT PRESENT; XTAL-FLAG NOT PRESENT; YLC-FLAG NOT PRESENT
[2017-05-12] MEDS ORDERED: BENZOCAINE 20% SPRAY 0.5ML ONE ×2 (11:26→11:47)
[2017-05-12] MEDS ORDERED: PIPERACILLIN/TAZO/PMX 3.375GM 50 ML IV SCH (11:30)
[2017-05-12] MEDS ORDERED: SODIUM CHLORIDE 0.9% 1,000 ML IV SCH (11:30)
[2017-05-12] MEDS ORDERED: BACITRACIN ZINC OINT 500U/GM, 0.9 GM ONE (11:47)
[2017-05-12] MEDS ORDERED: METRONIDAZOLE PMX 500MG/100ML 100 ML ONE (12:11)
[2017-05-12] MEDS ORDERED: CEFOTETAN PMX 1GM/50ML 50 ML ONE ×2 (12:12)
[2017-05-12] MEDS: CEFOTETAN PMX 1GM/50ML 50 ML IV SCH (12:14)
[2017-05-12] MEDS ORDERED: METRONIDAZOLE PMX 500MG/100ML 100 ML IV SCH (13:00)
[2017-05-12] MEDS: SODIUM CHLORIDE 0.9% 1,000 ML IV SCH ×5 (13:16→22:04)
[2017-05-12] MEDS ORDERED: SODIUM CHLORIDE 0.9% 1,000ML IVBOLUS ONE (13:30)
[2017-05-12] MEDS ORDERED: MORPHINE SULFATE 4 MG/ML, 1ML ONE (13:57)
[2017-05-12] MEDS ORDERED: ONDANSETRON 2MG/ML, 2ML ONE (13:57)
[2017-05-12] MEDS: ONDANSETRON 2MG/ML, 2ML IVPush PRN (13:59)
[2017-05-12] MEDS: morphine SULFATE 10 MG/ML, 1ML IVPush PRN ×5 (13:59→19:54)
[2017-05-12] MEDS ORDERED: CEFTAROLINE 600 MG in SODIUM CHLORIDE 0.9% 100 ML IV SCH (14:00)
[2017-05-12] MEDS: METRONIDAZOLE PMX 500MG/100ML 100 ML IV SCH ×2 (14:00→22:16)
[2017-05-12] MEDS ORDERED: DICYCLOMINE 20 MG TABLET PO PRN (14:30)
[2017-05-12] MEDS ORDERED: SENNA/DOCUSATE TABLET PO PRN (14:30)
[2017-05-12] MEDS ORDERED: ONDANSETRON ODT 8 MG PO PRN (14:30)
[2017-05-12] MEDS: PANTOPRAZOLE 80 MG in SODIUM CHLORIDE 0.9% 100 ML IV SCH (15:06)
[2017-05-12] MEDS: FLUCONAZOLE 400 MG/200 ML 200 ML IV SCH (15:07)
[2017-05-12 16:09] VITALS: BP 136/80
[2017-05-12] MEDS ORDERED: PHARMACY INSTRUCTION MC PRN (17:30)
[2017-05-12] MEDS ORDERED: NICOTINE 21 MG/24 HR PATCH.TD24 TD ONE (17:30)
[2017-05-12] MEDS ORDERED: POTASSIUM CHLORIDE 40 MEQ in SODIUM CHLORIDE 0.9% 500 ML IV ONE (20:30)
[2017-05-12] MEDS ORDERED: FENTANYL 1500 MCG/30 ML PCA IV PRN (21:00)
[2017-05-12] MEDS ORDERED: FENTANYL PF 100 MCG/2ML ONE (23:44)
[2017-05-13] MEDS ORDERED: FENTANYL PF 100 MCG/2ML IV ONE ×2 (00:30)
[2017-05-13] MEDS ORDERED: HYDROmorphone 1 MG/ML, 1ML IV ONE (00:30)
[2017-05-13] MEDS: PANTOPRAZOLE 80 MG in SODIUM CHLORIDE 0.9% 100 ML IV SCH ×3 (01:01→21:41)
[2017-05-13] MEDS: CEFOTETAN PMX 1GM/50ML 50 ML IV SCH ×2 (01:02→11:23)
[2017-05-13] MEDS ORDERED: LORazepam 2 MG/ML, 1ML ONE (01:16)
[2017-05-13] MEDS ORDERED: FENTANYL 1500 MCG/30 ML PCA IV PRN ×2 (01:30)
[2017-05-13] MEDS ORDERED: LORazepam 2 MG/ML, 1ML IVPush ONE (01:30)
[2017-05-13] MEDS ORDERED: ACETAMINOPHEN 325 MG TABLET PO PRN (02:00)
[2017-05-13] MEDS: METRONIDAZOLE PMX 500MG/100ML 100 ML IV SCH ×4 (02:01→21:41)
[2017-05-13 04:00] VITALS: BP 131/75
[2017-05-13 04:40] LABS: HEMATOCRIT 35.4 % (34.6-47.8); HEMOGLOBIN 11.8 g/dL (11.7-16.4); WHITE BLOOD COUNT 19.1 x10^3/uL (3.4-10)
[2017-05-13 04:48] LABS: BLOOD UREA NITROGEN 3 mg/dL (7-18)
[2017-05-13 05:00] LABS: ASPARTATE AMINO TRANSFERASE 24 U/L (15-37)
[2017-05-13] MEDS ORDERED: MAGNESIUM SULFATE PMX 2GM/50ML 50 ML IV ONE (05:30)
[2017-05-13] MEDS ORDERED: POTASSIUM PHOS 4.4 MEQ/ML IV SCH (05:30)
[2017-05-13] MEDS ORDERED: POTASSIUM PHOSPHATE 44 MEQ in SODIUM CHLORIDE 0.9% 500 ML IV ONE (06:00)
[2017-05-13] MEDS: SODIUM CHLORIDE 0.9% 1,000 ML IV SCH (06:33)
[2017-05-13] MEDS ORDERED: LACTOBACILLUS CHEW TABLET PO SCH (09:00)
[2017-05-13] MEDS ORDERED: CITALOPRAM 20 MG TABLET PO SCH (09:00)
[2017-05-13] MEDS: LORazepam 2 MG/ML, 1ML IVPush PRN ×3 (09:35→18:43)
[2017-05-13] MEDS: POTASSIUM CHLORIDE 10 MEQ in D5%-0.9% NACL 1,000 ML IV SCH ×2 (09:56→18:32)
[2017-05-13 14:15] LABS: ASPARTATE AMINO TRANSFERASE 21 U/L (15-37); BLOOD UREA NITROGEN 4 mg/dL (7-18)
[2017-05-13] MEDS: FLUCONAZOLE 400 MG/200 ML 200 ML IV SCH (16:00)
[2017-05-13] MEDS ORDERED: POTASSIUM CHLORIDE 40 MEQ in SODIUM CHLORIDE 0.9% 500 ML IV ONE (16:00)
[2017-05-13] MEDS ORDERED: VANCOMYCIN PER PHARMACY MC PRN (18:00)
[2017-05-13] MEDS ORDERED: ZOLPIDEM 5MG TABLET PO PRN (18:00)
[2017-05-13] MEDS ORDERED: PHARMACOKINETIC MONITORING MC PRN (18:30)
[2017-05-13] MEDS ORDERED: PHARMACOKINETIC CONSULTATION MC ONE (18:30)
[2017-05-13] MEDS ORDERED: HALOPERIDOL 5 MG/ML IV PRN (19:00)
[2017-05-13] MEDS: VANCOMYCIN PMX 1GM/200ML 200 ML IVPB SCH (20:12)
[2017-05-14] MEDS: CEFOTETAN PMX 1GM/50ML 50 ML IV SCH ×2 (01:21→13:28)
[2017-05-14] MEDS: POTASSIUM CHLORIDE 10 MEQ in D5%-0.9% NACL 1,000 ML IV SCH ×3 (01:41→14:06)
[2017-05-14] MEDS: METRONIDAZOLE PMX 500MG/100ML 100 ML IV SCH ×4 (01:43→19:58)
[2017-05-14] MEDS: HYDROmorphone 1 MG/ML, 1ML IV PRN (04:32)
[2017-05-14 04:38] LABS: HEMATOCRIT 32.8 % (34.6-47.8); WHITE BLOOD COUNT 17.9 x10^3/uL (3.4-10)
[2017-05-14 04:47] LABS: BLOOD UREA NITROGEN 3 mg/dL (7-18)
[2017-05-14 04:52] LABS: ASPARTATE AMINO TRANSFERASE 14 U/L (15-37)
[2017-05-14] MEDS: LORazepam 2 MG/ML, 1ML IVPush PRN ×3 (07:44→23:13)
[2017-05-14] MEDS: PANTOPRAZOLE 80 MG in SODIUM CHLORIDE 0.9% 100 ML IV SCH ×3 (07:53→23:54)
[2017-05-14] MEDS ORDERED: TPN PER PHARMACY MC SCH (13:30)
[2017-05-14] MEDS: VANCOMYCIN PMX 1GM/200ML 200 ML IVPB SCH (14:09)
[2017-05-14] MEDS: FLUCONAZOLE 400 MG/200 ML 200 ML IV SCH (16:14)
[2017-05-14] MEDS ORDERED: D5%-0.9% NACL 1,000 ML IV SCH (17:00)
[2017-05-14] MEDS ORDERED: AMINO ACID 10% IV SCH (17:00)
[2017-05-14] MEDS ORDERED: DEXTROSE 10% 500 ML IV PRN (17:00)
[2017-05-14] MEDS ORDERED: DEXTROSE 50%, 50ML SYRINGE IVPush PRN (17:00)
[2017-05-14] MEDS ORDERED: [UNRECOGNIZED DRUG - OTHER] IV SCH (17:00)
[2017-05-14] MEDS ORDERED: DEXTROSE 70% IV SCH (17:00)
[2017-05-14] MEDS ORDERED: FAT EMULSIONS IV SCH (17:00)
[2017-05-14] MEDS: BENZOCAINE AEROSOL SPRAY 20%, 60ML MM PRN (17:05)
[2017-05-14] MEDS: FILTER, DISP 1.2 MICRON FOR TPN/PVN IV PRN (17:28)
[2017-05-14] MEDS ORDERED: FENTANYL 1500 MCG/30 ML PCA IV PRN (17:30)
[2017-05-14] MEDS: [UNRECOGNIZED DRUG - REMARK] MC SCH (19:27)
[2017-05-14] MEDS ORDERED: INSULIN REGULAR LOW DOSE QDAY SQ-INSULIN SCH (21:00)
[2017-05-14] MEDS: INSULIN REGULAR LOW DOSE Q6H X 48HRS SQ-INSULIN SCH (21:30)
[2017-05-15] MEDS: CEFOTETAN PMX 1GM/50ML 50 ML IV SCH ×2 (00:08→13:49)
[2017-05-15] MEDS: [UNRECOGNIZED DRUG - REMARK] MC SCH ×3 (00:53→17:30)
[2017-05-15] MEDS: METRONIDAZOLE PMX 500MG/100ML 100 ML IV SCH ×4 (02:20→19:29)
[2017-05-15] MEDS: INSULIN REGULAR LOW DOSE Q6H X 48HRS SQ-INSULIN SCH ×5 (03:00→23:02)
[2017-05-15] MEDS: LORazepam 2 MG/ML, 1ML IVPush PRN ×3 (03:38→17:20)
[2017-05-15 03:40] LABS: HEMATOCRIT 30.4 % (34.6-47.8); HEMOGLOBIN 9.8 g/dL (11.7-16.4); WHITE BLOOD COUNT 16.1 x10^3/uL (3.4-10)
[2017-05-15 03:54] LABS: ASPARTATE AMINO TRANSFERASE 11 U/L (15-37); BLOOD UREA NITROGEN 3 mg/dL (7-18)
[2017-05-15] MEDS: VANCOMYCIN PMX 1GM/200ML 200 ML IVPB SCH (06:35)
[2017-05-15] MEDS: OCTREOTIDE 100MCG/ML, 1ML (0.1MG/ML) SQ SCH ×2 (08:35→17:26)
[2017-05-15] MEDS ORDERED: POTASSIUM PHOSPHATE 44 MEQ in SODIUM CHLORIDE 0.9% 500 ML IV ONE (09:30)
[2017-05-15] MEDS ORDERED: DEXTROSE 70% IV SCH ×2 (11:00→17:00)
[2017-05-15] MEDS ORDERED: FAT EMULSIONS IV SCH ×2 (11:00→17:00)
[2017-05-15] MEDS ORDERED: AMINO ACID 10% IV SCH ×2 (11:00→17:00)
[2017-05-15] MEDS ORDERED: [UNRECOGNIZED DRUG - OTHER] IV SCH ×2 (11:00→17:00)
[2017-05-15] MEDS: PANTOPRAZOLE 80 MG in SODIUM CHLORIDE 0.9% 100 ML IV SCH ×2 (11:23→20:42)
[2017-05-15] MEDS: FLUCONAZOLE 400 MG/200 ML 200 ML IV SCH (13:49)
[2017-05-15] MEDS: FILTER, DISP 1.2 MICRON FOR TPN/PVN IV PRN (17:35)
[2017-05-15] MEDS: ONDANSETRON 2MG/ML, 2ML IVPush PRN (20:02)
[2017-05-15] MEDS: HALOPERIDOL 5 MG/ML IV PRN (20:15)
[2017-05-16] MEDS: CEFOTETAN PMX 1GM/50ML 50 ML IV SCH ×2 (00:33→12:00)
[2017-05-16] MEDS: LORazepam 2 MG/ML, 1ML IVPush PRN ×5 (00:34→19:43)
[2017-05-16] MEDS: OCTREOTIDE 100MCG/ML, 1ML (0.1MG/ML) SQ SCH ×3 (00:34→16:08)
[2017-05-16] MEDS: [UNRECOGNIZED DRUG - REMARK] MC SCH ×3 (00:39→17:30)
[2017-05-16] MEDS: VANCOMYCIN PMX 1GM/200ML 200 ML IVPB SCH ×2 (01:10→12:01)
[2017-05-16] MEDS: FENTANYL 1500 MCG/30 ML PCA IV PRN (01:40)
[2017-05-16] MEDS: METRONIDAZOLE PMX 500MG/100ML 100 ML IV SCH ×4 (02:04→19:43)
[2017-05-16] MEDS: INSULIN REGULAR LOW DOSE Q6H X 48HRS SQ-INSULIN SCH ×2 (03:48→11:04)
[2017-05-16] MEDS: HALOPERIDOL 5 MG/ML IV PRN (03:51)
[2017-05-16 04:08] LABS: BLOOD UREA NITROGEN 3 mg/dL (7-18)
[2017-05-16] MEDS: PANTOPRAZOLE 80 MG in SODIUM CHLORIDE 0.9% 100 ML IV SCH ×2 (07:41→18:31)
[2017-05-16] MEDS ORDERED: INSULIN REGULAR LOW DOSE QDAY SQ-INSULIN SCH (09:00)
[2017-05-16 13:03] LABS: HEMATOCRIT 30.8 % (34.6-47.8); HEMOGLOBIN 10.1 g/dL (11.7-16.4); WHITE BLOOD COUNT 11.9 x10^3/uL (3.4-10)
[2017-05-16 13:18] LABS: DIFF TOTAL CELLS COUNTED 100 CELL DIFF
[2017-05-16 13:22] LABS: VERIFY COUNTS? YES
[2017-05-16] MEDS: FLUCONAZOLE 400 MG/200 ML 200 ML IV SCH (15:21)
[2017-05-16] MEDS ORDERED: AMINO ACID 10% IV SCH (17:00)
[2017-05-16] MEDS ORDERED: DEXTROSE 70% IV SCH (17:00)
[2017-05-16] MEDS ORDERED: [UNRECOGNIZED DRUG - OTHER] IV SCH (17:00)
[2017-05-16] MEDS ORDERED: FAT EMULSIONS IV SCH (17:00)
[2017-05-16] MEDS: FILTER, DISP 1.2 MICRON FOR TPN/PVN IV PRN (18:31)
[2017-05-16] MEDS: HYDROmorphone 1 MG/ML, 1ML IV PRN (23:44)
[2017-05-17] MEDS: FENTANYL 1500 MCG/30 ML PCA IV PRN ×2 (00:11→21:12)
[2017-05-17] MEDS: CEFOTETAN PMX 1GM/50ML 50 ML IV SCH ×2 (00:12→12:32)
[2017-05-17] MEDS: [UNRECOGNIZED DRUG - REMARK] MC SCH ×3 (01:30→16:53)
[2017-05-17] MEDS: OCTREOTIDE 100MCG/ML, 1ML (0.1MG/ML) SQ SCH ×3 (01:49→16:50)
[2017-05-17] MEDS: VANCOMYCIN PMX 1GM/200ML 200 ML IVPB SCH ×2 (01:49→11:12)
[2017-05-17] MEDS: PANTOPRAZOLE 80 MG in SODIUM CHLORIDE 0.9% 100 ML IV SCH ×2 (04:00→12:55)
[2017-05-17] MEDS: METRONIDAZOLE PMX 500MG/100ML 100 ML IV SCH ×4 (04:00→20:06)
[2017-05-17] MEDS: LORazepam 2 MG/ML, 1ML IVPush PRN ×5 (04:02→23:05)
[2017-05-17] MEDS ORDERED: OMNIPAQUE 350 MG/ML, 100ML BOTTLE ONE (05:41)
[2017-05-17 06:00] LABS: HEMATOCRIT 29.8 % (34.6-47.8); HEMOGLOBIN 9.8 g/dL (11.7-16.4); WHITE BLOOD COUNT 10.7 x10^3/uL (3.4-10)
[2017-05-17 06:15] LABS: BLOOD UREA NITROGEN 4 mg/dL (7-18)
[2017-05-17] MEDS: INSULIN REGULAR LOW DOSE QDAY SQ-INSULIN SCH (08:31)
[2017-05-17] MEDS ORDERED: LIDODERM 5% PATCH TD ONE (12:00)
[2017-05-17] MEDS: FLUCONAZOLE 400 MG/200 ML 200 ML IV SCH (13:59)
[2017-05-17] MEDS: FILTER, DISP 1.2 MICRON FOR TPN/PVN IV PRN (16:50)
[2017-05-17] MEDS: BENZOCAINE AEROSOL SPRAY 20%, 60ML MM PRN (16:53)
[2017-05-17] MEDS ORDERED: [UNRECOGNIZED DRUG - OTHER] IV SCH (17:00)
[2017-05-17] MEDS ORDERED: FAT EMULSIONS IV SCH (17:00)
[2017-05-17] MEDS ORDERED: AMINO ACID 10% IV SCH (17:00)
[2017-05-17] MEDS ORDERED: DEXTROSE 70% IV SCH (17:00)
[2017-05-17] MEDS: HYDROmorphone 1 MG/ML, 1ML IV PRN (19:39)
[2017-05-18] MEDS: OCTREOTIDE 100MCG/ML, 1ML (0.1MG/ML) SQ SCH ×3 (00:56→17:10)
[2017-05-18] MEDS: VANCOMYCIN PMX 1GM/200ML 200 ML IVPB SCH ×2 (00:56→13:01)
[2017-05-18] MEDS: PANTOPRAZOLE 80 MG in SODIUM CHLORIDE 0.9% 100 ML IV SCH ×3 (01:20→23:58)
[2017-05-18] MEDS: CEFOTETAN PMX 1GM/50ML 50 ML IV SCH ×2 (01:20→12:21)
[2017-05-18] MEDS: [UNRECOGNIZED DRUG - REMARK] MC SCH ×3 (01:30→17:10)
[2017-05-18 04:56] LABS: ASPARTATE AMINO TRANSFERASE 14 U/L (15-37); BLOOD UREA NITROGEN 6 mg/dL (7-18)
[2017-05-18] MEDS: METRONIDAZOLE PMX 500MG/100ML 100 ML IV SCH ×4 (06:48→21:32)
[2017-05-18] MEDS: HYDROmorphone 1 MG/ML, 1ML IV PRN ×2 (09:03→21:15)
[2017-05-18] MEDS: INSULIN REGULAR LOW DOSE QDAY SQ-INSULIN SCH (09:17)
[2017-05-18 12:33] LABS: ASPARTATE AMINO TRANSFERASE 12 U/L (15-37); BLOOD UREA NITROGEN 6 mg/dL (7-18)
[2017-05-18 12:47] LABS: HEMATOCRIT 31.9 % (34.6-47.8); HEMOGLOBIN 10.5 g/dL (11.7-16.4); WHITE BLOOD COUNT 16.2 x10^3/uL (3.4-10)
[2017-05-18 12:48] LABS: DIFF TOTAL CELLS COUNTED 100 CELL DIFF
[2017-05-18 12:52] LABS: VERIFY COUNTS? YES
[2017-05-18 12:54] LABS: GIANT PLATELETS 1+; HYPOCHROMIA 1+; LARGE PLATELETS 1+; MICROCYTOSIS 1+
[2017-05-18] MEDS ORDERED: LIDOCAINE 2%, 20ML ONE (13:36)
[2017-05-18] MEDS ORDERED: MIDAZOLAM 1 MG/ML, 5ML ONE ×3 (13:55→14:58)
[2017-05-18] MEDS ORDERED: NALOXONE 1 MG/ML, 2ML ONE (13:55)
[2017-05-18] MEDS ORDERED: FENTANYL PF 100 MCG/2ML ONE ×2 (13:55→14:58)
[2017-05-18] MEDS ORDERED: FLUMAZENIL 0.1 MG/1 ML, 5ML ONE (13:55)
[2017-05-18] MEDS ORDERED: DIPHENHYDRAMINE 50 MG/ML, 1ML ONE (14:59)
[2017-05-18] MEDS ORDERED: FAT EMULSIONS IV SCH (17:00)
[2017-05-18] MEDS ORDERED: DEXTROSE 70% IV SCH (17:00)
[2017-05-18] MEDS ORDERED: [UNRECOGNIZED DRUG - OTHER] IV SCH (17:00)
[2017-05-18] MEDS ORDERED: AMINO ACID 10% IV SCH (17:00)
[2017-05-18] MEDS: FLUCONAZOLE 400 MG/200 ML 200 ML IV SCH (17:09)
[2017-05-18] MEDS: ONDANSETRON 2MG/ML, 2ML IVPush PRN (21:32)
[2017-05-19] MEDS: CEFOTETAN PMX 1GM/50ML 50 ML IV SCH ×2 (00:33→12:28)
[2017-05-19] MEDS: OCTREOTIDE 100MCG/ML, 1ML (0.1MG/ML) SQ SCH ×3 (00:34→16:40)
[2017-05-19] MEDS: VANCOMYCIN PMX 1GM/200ML 200 ML IVPB SCH ×2 (01:18→12:28)
[2017-05-19] MEDS: [UNRECOGNIZED DRUG - REMARK] MC SCH ×3 (01:30→16:29)
[2017-05-19] MEDS: FENTANYL 1500 MCG/30 ML PCA IV PRN ×2 (02:06→18:50)
[2017-05-19] MEDS: METRONIDAZOLE PMX 500MG/100ML 100 ML IV SCH ×4 (03:45→20:57)
[2017-05-19 05:09] LABS: HEMATOCRIT 32.4 % (34.6-47.8); HEMOGLOBIN 10.5 g/dL (11.7-16.4); WHITE BLOOD COUNT 19.5 x10^3/uL (3.4-10)
[2017-05-19 05:20] LABS: BLOOD UREA NITROGEN 6 mg/dL (7-18)
[2017-05-19 05:39] LABS: DIFF TOTAL CELLS COUNTED 100 CELL DIFF
[2017-05-19 05:40] LABS: ANISOCYTOSIS 1+; VERIFY COUNTS? YES
[2017-05-19 05:41] LABS: LARGE PLATELETS 1+; OVALOCYTES 1+
[2017-05-19 05:42] LABS: GIANT PLATELETS 1+
[2017-05-19] MEDS: morphine SULFATE 10 MG/ML, 1ML IVPush PRN ×5 (07:41→23:20)
[2017-05-19] MEDS: INSULIN REGULAR LOW DOSE QDAY SQ-INSULIN SCH ×2 (07:58→20:55)
[2017-05-19] MEDS: PANTOPRAZOLE 80 MG in SODIUM CHLORIDE 0.9% 100 ML IV SCH (13:33)
[2017-05-19] MEDS: FLUCONAZOLE 400 MG/200 ML 200 ML IV SCH (16:40)
[2017-05-19] MEDS: ENOXAPARIN 30 MG/0.3 ML SQ SCH (16:40)
[2017-05-19] MEDS ORDERED: DEXTROSE 70% IV SCH (17:00)
[2017-05-19] MEDS ORDERED: [UNRECOGNIZED DRUG - OTHER] IV SCH (17:00)
[2017-05-19] MEDS ORDERED: FAT EMULSIONS IV SCH (17:00)
[2017-05-19] MEDS ORDERED: AMINO ACID 10% IV SCH (17:00)
[2017-05-19] MEDS: FILTER, DISP 1.2 MICRON FOR TPN/PVN IV PRN (17:54)
[2017-05-19] MEDS: LORazepam 2 MG/ML, 1ML IVPush PRN (20:02)
[2017-05-20] MEDS: PANTOPRAZOLE 80 MG in SODIUM CHLORIDE 0.9% 100 ML IV SCH ×3 (00:15→21:03)
[2017-05-20] MEDS: CEFOTETAN PMX 1GM/50ML 50 ML IV SCH ×2 (00:19→11:03)
[2017-05-20] MEDS: OCTREOTIDE 100MCG/ML, 1ML (0.1MG/ML) SQ SCH ×3 (01:26→15:59)
[2017-05-20] MEDS: HYDROcodone/APAP 10/325 MG TABLET PO PRN (01:26)
[2017-05-20] MEDS: VANCOMYCIN PMX 1GM/200ML 200 ML IVPB SCH ×2 (01:27→13:10)
[2017-05-20] MEDS: [UNRECOGNIZED DRUG - REMARK] MC SCH ×3 (01:30→17:30)
[2017-05-20] MEDS: LORazepam 2 MG/ML, 1ML IVPush PRN ×2 (02:41→20:34)
[2017-05-20] MEDS: morphine SULFATE 10 MG/ML, 1ML IVPush PRN ×4 (02:41→21:57)
[2017-05-20] MEDS: METRONIDAZOLE PMX 500MG/100ML 100 ML IV SCH ×4 (03:42→23:33)
[2017-05-20] MEDS: ENOXAPARIN 30 MG/0.3 ML SQ SCH ×2 (03:42→15:16)
[2017-05-20 04:08] LABS: ASPARTATE AMINO TRANSFERASE 15 U/L (15-37); BLOOD UREA NITROGEN 8 mg/dL (7-18)
[2017-05-20 04:37] LABS: HEMATOCRIT 29.1 % (34.6-47.8); HEMOGLOBIN 9.7 g/dL (11.7-16.4); WHITE BLOOD COUNT 14.1 x10^3/uL (3.4-10)
[2017-05-20] MEDS: INSULIN REGULAR LOW DOSE QDAY SQ-INSULIN SCH ×2 (09:08→21:50)
[2017-05-20] MEDS: FLUCONAZOLE 400 MG/200 ML 200 ML IV SCH (16:57)
[2017-05-20] MEDS: FILTER, DISP 1.2 MICRON FOR TPN/PVN IV PRN (16:57)
[2017-05-20] MEDS ORDERED: [UNRECOGNIZED DRUG - OTHER] IV SCH (17:00)
[2017-05-20] MEDS ORDERED: AMINO ACID 10% IV SCH (17:00)
[2017-05-20] MEDS ORDERED: FAT EMULSIONS IV SCH (17:00)
[2017-05-20] MEDS ORDERED: DEXTROSE 70% IV SCH (17:00)
[2017-05-20 18:06] VITALS: BP 98/68
[2017-05-20 20:42] VITALS: BP 104/73
[2017-05-20] MEDS: FENTANYL 1500 MCG/30 ML PCA IV PRN (21:08)
[2017-05-21 00:24] VITALS: BP 90/60
[2017-05-21] MEDS: CEFOTETAN PMX 1GM/50ML 50 ML IV SCH ×2 (01:26→11:52)
[2017-05-21] MEDS: morphine SULFATE 10 MG/ML, 1ML IVPush PRN ×6 (02:12→19:47)
[2017-05-21] MEDS: [UNRECOGNIZED DRUG - REMARK] MC SCH ×3 (02:18→16:57)
[2017-05-21] MEDS: VANCOMYCIN PMX 1GM/200ML 200 ML IVPB SCH ×2 (02:36→13:22)
[2017-05-21] MEDS: ENOXAPARIN 30 MG/0.3 ML SQ SCH ×2 (02:52→15:45)
[2017-05-21] MEDS: OCTREOTIDE 100MCG/ML, 1ML (0.1MG/ML) SQ SCH ×3 (02:52→18:13)
[2017-05-21] MEDS: METRONIDAZOLE PMX 500MG/100ML 100 ML IV SCH ×4 (04:15→21:36)
[2017-05-21 04:16] VITALS: BP 97/71
[2017-05-21 06:35] VITALS: BP 92/60
[2017-05-21 07:06] LABS: HEMATOCRIT 27.4 % (34.6-47.8); HEMOGLOBIN 9.2 g/dL (11.7-16.4)
[2017-05-21 07:14] LABS: BLOOD UREA NITROGEN 7 mg/dL (7-18)
[2017-05-21] MEDS: HYDROcodone/APAP 10/325 MG TABLET PO PRN ×3 (07:50→20:32)
[2017-05-21] MEDS: PANTOPRAZOLE 80 MG in SODIUM CHLORIDE 0.9% 100 ML IV SCH ×2 (08:55→20:22)
[2017-05-21] MEDS: INSULIN REGULAR LOW DOSE QDAY SQ-INSULIN SCH ×2 (09:30→21:30)
[2017-05-21] MEDS: LORazepam 2 MG/ML, 1ML IVPush PRN ×2 (12:42→21:33)
[2017-05-21 14:13] VITALS: BP 112/71
[2017-05-21] MEDS: FLUCONAZOLE 400 MG/200 ML 200 ML IV SCH (16:58)
[2017-05-21] MEDS: FILTER, DISP 1.2 MICRON FOR TPN/PVN IV PRN (16:59)
[2017-05-21] MEDS ORDERED: AMINO ACID 10% IV SCH (17:00)
[2017-05-21] MEDS ORDERED: FAT EMULSIONS IV SCH (17:00)
[2017-05-21] MEDS ORDERED: DEXTROSE 70% IV SCH (17:00)
[2017-05-21] MEDS ORDERED: [UNRECOGNIZED DRUG - OTHER] IV SCH (17:00)
[2017-05-21 19:30] VITALS: BP 108/72
[2017-05-21] MEDS: FENTANYL 1500 MCG/30 ML PCA IV PRN (20:28)
[2017-05-22] MEDS: HYDROmorphone 1 MG/ML, 1ML IV PRN (00:41)
[2017-05-22] MEDS: CEFOTETAN PMX 1GM/50ML 50 ML IV SCH ×2 (00:41→12:00)
[2017-05-22 00:50] VITALS: BP 95/59
[2017-05-22] MEDS: [UNRECOGNIZED DRUG - REMARK] MC SCH ×3 (01:18→17:30)
[2017-05-22] MEDS: LORazepam 2 MG/ML, 1ML IVPush PRN ×4 (01:45→22:39)
[2017-05-22] MEDS: OCTREOTIDE 100MCG/ML, 1ML (0.1MG/ML) SQ SCH ×3 (01:48→18:14)
[2017-05-22] MEDS: METRONIDAZOLE PMX 500MG/100ML 100 ML IV SCH ×4 (03:11→22:38)
[2017-05-22] MEDS: HYDROcodone/APAP 10/325 MG TABLET PO PRN ×4 (03:11→22:38)
[2017-05-22] MEDS: ENOXAPARIN 30 MG/0.3 ML SQ SCH ×2 (03:11→15:37)
[2017-05-22 03:59] LABS: BLOOD UREA NITROGEN 10 mg/dL (7-18)
[2017-05-22] MEDS: VANCOMYCIN 1,200 MG in SODIUM CHLORIDE 0.9% 250 ML IV SCH ×3 (06:12→20:08)
[2017-05-22] MEDS: PANTOPRAZOLE 80 MG in SODIUM CHLORIDE 0.9% 100 ML IV SCH ×2 (06:12→15:59)
[2017-05-22] MEDS: morphine SULFATE 10 MG/ML, 1ML IVPush PRN ×5 (06:13→23:18)
[2017-05-22 06:59] VITALS: BP 91/62
[2017-05-22] MEDS: INSULIN REGULAR LOW DOSE QDAY SQ-INSULIN SCH ×2 (09:30→21:30)
[2017-05-22] MEDS ORDERED: POTASSIUM CHLORIDE 40 MEQ in SODIUM CHLORIDE 0.9% 500 ML IV ONE (10:00)
[2017-05-22 10:34] LABS: HEMATOCRIT 26.5 % (34.6-47.8); HEMOGLOBIN 8.9 g/dL (11.7-16.4); WHITE BLOOD COUNT 16.5 x10^3/uL (3.4-10)
[2017-05-22 12:47] VITALS: BP 94/61
[2017-05-22] MEDS: FILTER, DISP 1.2 MICRON FOR TPN/PVN IV PRN (16:34)
[2017-05-22] MEDS ORDERED: FAT EMULSIONS IV SCH (17:00)
[2017-05-22] MEDS ORDERED: [UNRECOGNIZED DRUG - OTHER] IV SCH (17:00)
[2017-05-22] MEDS ORDERED: AMINO ACID 10% IV SCH (17:00)
[2017-05-22] MEDS ORDERED: DEXTROSE 70% IV SCH (17:00)
[2017-05-22] MEDS: FLUCONAZOLE 400 MG/200 ML 200 ML IV SCH (17:13)
[2017-05-22 18:45] VITALS: BP 98/66
[2017-05-23] MEDS: CEFOTETAN PMX 1GM/50ML 50 ML IV SCH ×2 (00:55→11:43)
[2017-05-23 01:18] VITALS: BP 98/66
[2017-05-23] MEDS: PANTOPRAZOLE 80 MG in SODIUM CHLORIDE 0.9% 100 ML IV SCH ×3 (03:04→22:47)
[2017-05-23] MEDS: OCTREOTIDE 100MCG/ML, 1ML (0.1MG/ML) SQ SCH ×3 (03:04→16:54)
[2017-05-23] MEDS: ENOXAPARIN 30 MG/0.3 ML SQ SCH ×2 (03:05→16:00)
[2017-05-23] MEDS: morphine SULFATE 10 MG/ML, 1ML IVPush PRN ×4 (03:08→17:33)
[2017-05-23] MEDS: LORazepam 2 MG/ML, 1ML IVPush PRN ×4 (04:46→20:19)
[2017-05-23] MEDS: METRONIDAZOLE PMX 500MG/100ML 100 ML IV SCH ×4 (04:46→22:47)
[2017-05-23] MEDS: HYDROcodone/APAP 10/325 MG TABLET PO PRN ×3 (04:46→20:19)
[2017-05-23] MEDS: FENTANYL 1500 MCG/30 ML PCA IV PRN (05:05)
[2017-05-23 07:12] LABS: HEMATOCRIT 26.7 % (34.6-47.8); HEMOGLOBIN 8.8 g/dL (11.7-16.4); WHITE BLOOD COUNT 15.5 x10^3/uL (3.4-10)
[2017-05-23 07:22] LABS: BLOOD UREA NITROGEN 9 mg/dL (7-18)
[2017-05-23 07:29] LABS: DIFF TOTAL CELLS COUNTED 100 CELL DIFF
[2017-05-23 07:31] LABS: VERIFY COUNTS? YES
[2017-05-23 07:32] LABS: ANISOCYTOSIS 2+; POLYCHROMASIA 1+
[2017-05-23] MEDS: VANCOMYCIN 1,200 MG in SODIUM CHLORIDE 0.9% 250 ML IV SCH ×2 (07:33→19:41)
[2017-05-23 08:30] VITALS: BP 102/70
[2017-05-23] MEDS: INSULIN REGULAR LOW DOSE QDAY SQ-INSULIN SCH ×2 (09:30→21:30)
[2017-05-23 13:11] VITALS: BP 120/74
[2017-05-23] MEDS: FLUCONAZOLE 400 MG/200 ML 200 ML IV SCH ×2 (16:54→17:56)
[2017-05-23] MEDS ORDERED: AMINO ACID 10% IV SCH (17:00)
[2017-05-23] MEDS ORDERED: FAT EMULSIONS IV SCH (17:00)
[2017-05-23] MEDS ORDERED: [UNRECOGNIZED DRUG - OTHER] IV SCH (17:00)
[2017-05-23] MEDS ORDERED: DEXTROSE 70% IV SCH (17:00)
[2017-05-23] MEDS: FILTER, DISP 1.2 MICRON FOR TPN/PVN IV PRN (17:33)
[2017-05-23 19:50] VITALS: BP 108/73
[2017-05-24] MEDS: LORazepam 2 MG/ML, 1ML IVPush PRN ×5 (00:03→21:26)
[2017-05-24] MEDS: morphine SULFATE 10 MG/ML, 1ML IVPush PRN ×7 (00:04→22:49)
[2017-05-24] MEDS: CEFOTETAN PMX 1GM/50ML 50 ML IV SCH ×2 (00:10→12:50)
[2017-05-24] MEDS: ENOXAPARIN 30 MG/0.3 ML SQ SCH ×2 (03:08→15:38)
[2017-05-24] MEDS: OCTREOTIDE 100MCG/ML, 1ML (0.1MG/ML) SQ SCH ×3 (03:08→18:15)
[2017-05-24] MEDS: METRONIDAZOLE PMX 500MG/100ML 100 ML IV SCH ×4 (04:13→22:45)
[2017-05-24] MEDS: HYDROcodone/APAP 10/325 MG TABLET PO PRN ×3 (06:17→18:23)
[2017-05-24 06:27] LABS: BLOOD UREA NITROGEN 9 mg/dL (7-18)
[2017-05-24] MEDS: VANCOMYCIN 1,200 MG in SODIUM CHLORIDE 0.9% 250 ML IV SCH ×2 (07:54→19:36)
[2017-05-24] MEDS: PANTOPRAZOLE 80 MG in SODIUM CHLORIDE 0.9% 100 ML IV SCH ×2 (08:27→18:15)
[2017-05-24] MEDS: INSULIN REGULAR LOW DOSE QDAY SQ-INSULIN SCH ×2 (09:02→20:24)
[2017-05-24 12:52] VITALS: BP 100/68
[2017-05-24] MEDS: FENTANYL 1500 MCG/30 ML PCA IV PRN (15:10)
[2017-05-24] MEDS: BENZOCAINE AEROSOL SPRAY 20%, 60ML MM PRN ×2 (15:43→18:16)
[2017-05-24] MEDS ORDERED: [UNRECOGNIZED DRUG - OTHER] IV SCH (17:00)
[2017-05-24] MEDS ORDERED: DEXTROSE 70% IV SCH (17:00)
[2017-05-24] MEDS ORDERED: FAT EMULSIONS IV SCH (17:00)
[2017-05-24] MEDS ORDERED: AMINO ACID 10% IV SCH (17:00)
[2017-05-24] MEDS: FILTER, DISP 1.2 MICRON FOR TPN/PVN IV PRN (17:27)
[2017-05-24] MEDS: FLUCONAZOLE 400 MG/200 ML 200 ML IV SCH (18:15)
[2017-05-24 19:22] VITALS: BP 145/80
[2017-05-24] MEDS: HYDROmorphone 1 MG/ML, 1ML IV PRN (23:35)
[2017-05-25] MEDS: CEFOTETAN PMX 1GM/50ML 50 ML IV SCH ×2 (00:25→14:01)
[2017-05-25] MEDS: HYDROcodone/APAP 10/325 MG TABLET PO PRN ×4 (00:26→20:51)
[2017-05-25 01:54] VITALS: BP 104/68
[2017-05-25] MEDS: morphine SULFATE 10 MG/ML, 1ML IVPush PRN ×4 (02:21→23:08)
[2017-05-25] MEDS: LORazepam 2 MG/ML, 1ML IVPush PRN ×5 (02:22→19:28)
[2017-05-25] MEDS: OCTREOTIDE 100MCG/ML, 1ML (0.1MG/ML) SQ SCH ×3 (02:22→23:15)
[2017-05-25] MEDS: PANTOPRAZOLE 80 MG in SODIUM CHLORIDE 0.9% 100 ML IV SCH ×2 (04:17→15:26)
[2017-05-25] MEDS: METRONIDAZOLE PMX 500MG/100ML 100 ML IV SCH ×3 (04:19→20:43)
[2017-05-25] MEDS: ENOXAPARIN 30 MG/0.3 ML SQ SCH ×2 (04:19→15:26)
[2017-05-25] MEDS ORDERED: CATHFLO-ALTEPLASE 2 MG/2 ML CATHFLUSH ONE (06:00)
[2017-05-25 07:56] LABS: HEMATOCRIT 24.2 % (34.6-47.8); HEMOGLOBIN 8.1 g/dL (11.7-16.4); WHITE BLOOD COUNT 16.8 x10^3/uL (3.4-10)
[2017-05-25 08:08] LABS: BLOOD UREA NITROGEN 9 mg/dL (7-18)
[2017-05-25] MEDS: VANCOMYCIN 1,200 MG in SODIUM CHLORIDE 0.9% 250 ML IV SCH ×2 (08:10→22:42)
[2017-05-25 09:08] VITALS: BP 92/69
[2017-05-25] MEDS: INSULIN REGULAR LOW DOSE QDAY SQ-INSULIN SCH ×2 (09:38→22:58)
[2017-05-25 13:23] VITALS: BP 108/71
[2017-05-25] MEDS ORDERED: AMINO ACID 10% IV SCH (17:00)
[2017-05-25] MEDS ORDERED: FAT EMULSIONS IV SCH (17:00)
[2017-05-25] MEDS ORDERED: DEXTROSE 70% IV SCH (17:00)
[2017-05-25] MEDS ORDERED: [UNRECOGNIZED DRUG - OTHER] IV SCH (17:00)
[2017-05-25] MEDS: FLUCONAZOLE 400 MG/200 ML 200 ML IV SCH (17:52)
[2017-05-25] MEDS: FILTER, DISP 1.2 MICRON FOR TPN/PVN IV PRN (19:29)
[2017-05-25 20:10] VITALS: BP 116/72
[2017-05-25] MEDS: FENTANYL 1500 MCG/30 ML PCA IV PRN (23:38)
[2017-05-26] MEDS: PANTOPRAZOLE 80 MG in SODIUM CHLORIDE 0.9% 100 ML IV SCH ×3 (01:59→23:51)
[2017-05-26] MEDS: CEFOTETAN PMX 1GM/50ML 50 ML IV SCH (02:21)
[2017-05-26] MEDS: HYDROcodone/APAP 10/325 MG TABLET PO PRN ×4 (02:49→21:41)
[2017-05-26 02:56] VITALS: BP 104/75
[2017-05-26] MEDS: METRONIDAZOLE PMX 500MG/100ML 100 ML IV SCH ×2 (03:07→08:59)
[2017-05-26] MEDS: LORazepam 2 MG/ML, 1ML IVPush PRN ×2 (03:17→23:38)
[2017-05-26] MEDS: ENOXAPARIN 30 MG/0.3 ML SQ SCH ×2 (03:20→15:33)
[2017-05-26] MEDS: OCTREOTIDE 100MCG/ML, 1ML (0.1MG/ML) SQ SCH ×3 (06:32→23:29)
[2017-05-26 07:25] LABS: BLOOD UREA NITROGEN 9 mg/dL (7-18)
[2017-05-26 07:55] VITALS: BP 102/62
[2017-05-26] MEDS ORDERED: OMNIPAQUE 350 MG/ML, 100ML BOTTLE ONE (09:45)
[2017-05-26] MEDS: INSULIN REGULAR LOW DOSE QDAY SQ-INSULIN SCH ×2 (10:04→21:31)
[2017-05-26] MEDS: VANCOMYCIN 1,200 MG in SODIUM CHLORIDE 0.9% 250 ML IV SCH (11:08)
[2017-05-26] MEDS ORDERED: FENTANYL 1500 MCG/30 ML PCA IV PRN (12:00)
[2017-05-26 13:00] VITALS: BP 123/77
[2017-05-26] MEDS ORDERED: DEXTROSE 70% IV SCH (17:00)
[2017-05-26] MEDS ORDERED: AMINO ACID 10% IV SCH (17:00)
[2017-05-26] MEDS ORDERED: [UNRECOGNIZED DRUG - OTHER] IV SCH (17:00)
[2017-05-26] MEDS ORDERED: FAT EMULSIONS IV SCH (17:00)
[2017-05-26] MEDS: FILTER, DISP 1.2 MICRON FOR TPN/PVN IV PRN (17:15)
[2017-05-26] MEDS: FLUCONAZOLE 400 MG/200 ML 200 ML IV SCH (18:18)
[2017-05-26 19:59] VITALS: BP 112/77
[2017-05-27] MEDS: ENOXAPARIN 30 MG/0.3 ML SQ SCH ×2 (04:12→14:50)
[2017-05-27] MEDS: HYDROcodone/APAP 10/325 MG TABLET PO PRN ×3 (04:18→18:29)
[2017-05-27 04:27] VITALS: BP 114/81
[2017-05-27 05:24] LABS: HEMATOCRIT 23.3 % (34.6-47.8); HEMOGLOBIN 7.9 g/dL (11.7-16.4); WHITE BLOOD COUNT 16.7 x10^3/uL (3.4-10)
[2017-05-27 05:37] LABS: BLOOD UREA NITROGEN 8 mg/dL (7-18)
[2017-05-27 05:59] LABS: DIFF TOTAL CELLS COUNTED 100 CELL DIFF
[2017-05-27 06:01] LABS: VERIFY COUNTS? YES
[2017-05-27 06:03] LABS: POLYCHROMASIA 1+
[2017-05-27 06:04] LABS: ANISOCYTOSIS 1+
[2017-05-27] MEDS: OCTREOTIDE 100MCG/ML, 1ML (0.1MG/ML) SQ SCH (07:27)
[2017-05-27] MEDS ORDERED: KETOROLAC 10MG TABLET PO PRN (09:30)
[2017-05-27] MEDS: DOCUSATE 100 MG CAPSULE PO SCH ×2 (10:29→20:33)
[2017-05-27] MEDS: morphine SULFATE 10 MG/ML, 1ML IVPush PRN ×2 (12:40→20:33)
[2017-05-27] MEDS: PANCRELIPASE 24,000 CAPSULE.DR PO SCH ×2 (12:40→17:17)
[2017-05-27] MEDS: HYDROmorphone 1 MG/ML, 1ML IV PRN (14:50)
[2017-05-27 14:51] VITALS: BP 143/83
[2017-05-27 15:14] VITALS: BP 128/83
[2017-05-27] MEDS: OMEPRAZOLE 20 MG CAPSULE.DR PO SCH ×2 (16:07→20:33)
[2017-05-27] MEDS: LORazepam 2 MG/ML, 1ML IVPush PRN ×2 (16:07→22:54)
[2017-05-27 19:37] VITALS: BP 117/68
[2017-05-28 01:37] VITALS: BP 113/75
[2017-05-28] MEDS: HYDROmorphone 1 MG/ML, 1ML IV PRN ×3 (01:56→14:40)
[2017-05-28] MEDS: ENOXAPARIN 30 MG/0.3 ML SQ SCH ×2 (04:05→16:38)
[2017-05-28] MEDS: morphine SULFATE 10 MG/ML, 1ML IVPush PRN ×2 (04:14→10:34)
[2017-05-28 04:52] LABS: HEMATOCRIT 24.1 % (34.6-47.8); WHITE BLOOD COUNT 17.4 x10^3/uL (3.4-10)
[2017-05-28 04:56] LABS: ASPARTATE AMINO TRANSFERASE 16 U/L (15-37); BLOOD UREA NITROGEN 7 mg/dL (7-18)
[2017-05-28] MEDS: LORazepam 2 MG/ML, 1ML IVPush PRN ×4 (04:59→22:42)
[2017-05-28 07:30] VITALS: BP 100/57
[2017-05-28] MEDS: OMEPRAZOLE 20 MG CAPSULE.DR PO SCH ×3 (07:55→22:19)
[2017-05-28] MEDS: DOCUSATE 100 MG CAPSULE PO SCH ×2 (07:55→22:19)
[2017-05-28] MEDS: PANCRELIPASE 24,000 CAPSULE.DR PO SCH ×3 (07:55→16:52)
[2017-05-28] MEDS ORDERED: MORPHINE SULFATE 4 MG/ML, 1ML ONE (10:31)
[2017-05-28] MEDS: HYDROcodone/APAP 10/325 MG TABLET PO PRN ×2 (13:11→22:17)
[2017-05-28 14:12] VITALS: BP 108/66
[2017-05-28] MEDS: FERROUS SULFATE 325 MG TABLET PO SCH (16:52)
[2017-05-28 19:13] VITALS: BP 115/73
[2017-05-28] MEDS: AMOXICILLIN/CLAV 875-125MG TABLET PO SCH (22:19)
[2017-05-29 00:23] VITALS: BP 95/59
[2017-05-29] MEDS: ENOXAPARIN 30 MG/0.3 ML SQ SCH (05:29)
[2017-05-29] MEDS: LORazepam 2 MG/ML, 1ML IVPush PRN ×2 (05:29→11:12)
[2017-05-29] MEDS: HYDROcodone/APAP 10/325 MG TABLET PO PRN ×2 (06:43→12:09)
[2017-05-29 07:20] VITALS: BP 93/58
[2017-05-29] MEDS ORDERED: MORPHINE SULFATE 4 MG/ML, 1ML ONE (07:48)
[2017-05-29] MEDS: PANCRELIPASE 24,000 CAPSULE.DR PO SCH ×2 (07:56→12:09)
[2017-05-29] MEDS: FERROUS SULFATE 325 MG TABLET PO SCH (07:57)
[2017-05-29] MEDS: DOCUSATE 100 MG CAPSULE PO SCH (07:57)
[2017-05-29] MEDS: AMOXICILLIN/CLAV 875-125MG TABLET PO SCH (07:57)
[2017-05-29] MEDS: OMEPRAZOLE 20 MG CAPSULE.DR PO SCH (07:57)
[2017-05-29] MEDS ORDERED: FERR-36 PO (09:21)
[2017-05-29] MEDS ORDERED: OMEP-110 PO (09:21)
[2017-05-29] MEDS ORDERED: LIPA1CAP61 PO (09:21)
[2017-05-29] MEDS ORDERED: LORA-446 PO (09:21)
[2017-05-29] MEDS ORDERED: AMOX1TAB12 PO (09:21)
[2017-05-29] MEDS ORDERED: HYDR-3307 PO (09:21)
[2017-05-29] MEDS ORDERED: AMIT10TA PO (10:23)
== END 2017-05-29 13:29 | disposition home or self-care (01) | DRG 871 ==
LOC: ED 09:31 → EDIP 13:41 → CCU 15:29 → 4NOR 05-20 17:52 → DCLOUNGE 05-29 13:00
PROVIDERS: ADMIT Family Medicine; ATTEND Family Medicine
PROC: 02HV33Z Insertion of Infusion Device into Superior Vena Cava, Percutaneous Approach (ICD-10-PCS; principal; 2017-05-14)
PROC: B548ZZA Ultrasonography of Superior Vena Cava, Guidance (ICD-10-PCS; 2017-05-14)
PROC: 0W9H30Z Drainage of Retroperitoneum with Drainage Device, Percutaneous Approach (ICD-10-PCS; 2017-05-18)
DX: A41.9 Sepsis, unspecified organism (principal); K25.5 Chronic or unspecified gastric ulcer with perforation; J90 Pleural effusion, not elsewhere classified; K68.19 Other retroperitoneal abscess; I31.3 Pericardial effusion (noninflammatory); J93.82 Other air leak; J98.11 Atelectasis; Q21.1 Atrial septal defect; E31.21 Multiple endocrine neoplasia [MEN] type I; E83.42 Hypomagnesemia; E83.51 Hypocalcemia; D63.8 Anemia in other chronic diseases classified elsewhere; E87.6 Hypokalemia; F17.210 Nicotine dependence, cigarettes, uncomplicated; F41.9 Anxiety disorder, unspecified; G43.A0 Cyclical vomiting, in migraine, not intractable; G47.00 Insomnia, unspecified; G89.29 Other chronic pain; K21.9 Gastro-esophageal reflux disease without esophagitis; K58.0 Irritable bowel syndrome with diarrhea; Z80.0 Family history of malignant neoplasm of digestive organs; Z80.8 Family history of malignant neoplasm of other organs or systems; Z83.41 Family history of multiple endocrine neoplasia [MEN] syndrome; Z87.11 Personal history of peptic ulcer disease; Z90.411 Acquired partial absence of pancreas; Z90.49 Acquired absence of other specified parts of digestive tract; Z90.710 Acquired absence of both cervix and uterus; Z90.81 Acquired absence of spleen; Z88.0 Allergy status to penicillin
CPT/HCPCS: 36415; 36569; 49406; 71010; 74000; 74020; 74177; 74178; 74245; 75989; 76937; 77001; 80048; 80053; 80202; 81001; 82941; 82962; 83605; 83690; 83735; 84100; 84134; 84145; 84443; 84478; 85025; 87015; 87040; 87070; 87075; 87077; 87081; 87086; 87106; 87116; 87186; 87205; 87206; 93005; 93306; 96361; 96365; 96367; 96375; 96376; 99156; 99157; J0610; J1170; J1450; J1644; J1650; J1815; J2250; J2354; J2405; J2997; J3010; J3370; J3475; J3480; J3490; J7042; Q9967; C1729; C1751; C9113; J1200; J1630; J1720; J2060; J2270; J2310; J3420; J7030; J7040; J7050; S0074